=== PATIENT | male | born 1980 | race Caucasian/White ===

== ENCOUNTER 2024-10-08 21:37 | Emergency (ER) | payer OTHER ==
[~2024-10-08] VITALS: Ht 188 cm; Wt 91.4 kg
[2024-10-08 21:39] VITALS: BP 160/88; PULSE 32; RESP 18; TEMP 98.3; O2SAT 99
== END 2024-10-08 22:44 | disposition left against medical advice (07) ==
LOC: ER 21:37
DX: F41.9 Anxiety disorder, unspecified (principal); R06.02 Shortness of breath; Z53.21 Procedure and treatment not carried out due to patient leaving prior to being seen by health care provider
CPT/HCPCS: 93005

== ENCOUNTER 2025-04-27 19:43 | Emergency (ER) | payer SELFPAY ==
[~2025-04-27] VITALS: Ht 190.5 cm; Wt 86.4 kg
[2025-04-27 19:46] VITALS: BP 128/95; PULSE 106; RESP 20; TEMP 98; O2SAT 97
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
== END 2025-04-27 20:38 ==
LOC: ER 19:43
DX: Z00.00 Encounter for general adult medical examination without abnormal findings (principal)
CPT/HCPCS: 99283